=== PATIENT | female | born 1945 | race African-American/Black ===

== ENCOUNTER 2019-12-02 14:09 | Inpatient (IN) | payer MEDICARE, MEDICAID ==
[~2019-12-02] VITALS: Ht 162.6 cm; Wt 68.9 kg
[2019-12-02] MEDS ORDERED: SODIUM CHLORIDE 0.9% 500 ML IV ONE (14:45)
[2019-12-02 15:27] LABS: HEMATOCRIT. 24.1 % (36.0-48.0); HEMOGLOBIN. 7.8 g/dL (12.0-16.0); MEAN CORPUSCULAR HEMOGLOBIN 23.6 pg (28.0-32.0); MEAN CORPUSCULAR VOLUME 72.8 fL (81.0-99.0); MEAN PLATELET VOLUME 7.5 fl (7.4-10.4); PLATELET 469 x1000/uL (130-400); RED BLOOD CELL COUNT 3.31 mill/uL (4.2-5.4); RED CELL DISTRIBUTION WIDTH 17.4 % (11.6-14.6)
[2019-12-02 15:34] LABS: CHLORIDE 95 mEq/L (98-107)
[2019-12-02 15:36] LABS: INR 1.1; PROTHROMBIN TIME 11.4 sec (9.6-11.0)
[2019-12-02 15:38] LABS: ETHANOL BLOOD < 10 mg/dL
[2019-12-02 15:48] LABS: PLATELET ESTIMATE INCREASED
[2019-12-02] MEDS ORDERED: SODIUM CHLORIDE 0.9% 1000ML BAG (SEPSIS BOLUS) IV NR (16:00)
[2019-12-02 16:33] LABS: CLARITY URINE TURBID (CLEAR); COLOR URINE DARK YELLOW (YELLOW); KETONES URINE TRACE (NEGATIVE); LEUKOCYTE ESTERASE URINE 3+ (NEGATIVE); NITRITE URINE POSITIVE (NEGATIVE); OCCULT BLOOD URINE 3+ (NEGATIVE); PROTEIN URINE 1+ (NEGATIVE); SPECIFIC GRAVITY URINE 1.018 (1.005-1.030)
[2019-12-02 16:45] LABS: METHADONE URINE SCREEN NEGATIVE (NEGATIVE); OPIATES URINE SCREEN NEGATIVE (NEGATIVE)
[2019-12-02 16:46] LABS: *AMPHETAMINES SCREEN URINE NEGATIVE (NEGATIVE); *BARBITURATES SCREEN URINE NEGATIVE (NEGATIVE); *BENZODIAZEPINES SCREEN URINE NEGATIVE (NEGATIVE); *COCAINE SCREEN URINE NEGATIVE (NEGATIVE); CANNABINOID URINE SCREEN NEGATIVE (NEGATIVE); PHENCYCLIDINE URINE SCREEN NEGATIVE (NEGATIVE)
[2019-12-02] MEDS ORDERED: NA PHOS,M-B/NA PHOS,DI-BA ENEMA 118ML PR NR (17:30)
[2019-12-02] MEDS ORDERED: MAGNESIUM/ALUMINUM HYDROXIDE/SIMETHICONE 30ML UDC PO PRN (17:45)
[2019-12-02] MEDS ORDERED: TRAMADOL 50MG TABLET PO PRN (17:45)
[2019-12-02] MEDS ORDERED: IPRATROPIUM/ALBUTEROL 0.5-3(2.5)MG/3ML NEB NEB PRN (17:45)
[2019-12-02] MEDS ORDERED: DOCUSATE SODIUM 100MG CAPSULE PO PRN (17:45)
[2019-12-02] MEDS ORDERED: ACETAMINOPHEN 325MG TABLET PO PRN ×2 (17:45)
[2019-12-02] MEDS ORDERED: NA PHOS,M-B/NA PHOS,DI-BA ENEMA 118ML PR PRN (17:45)
[2019-12-02] MEDS ORDERED: NITROGLYCERIN 0.4MG TABLET SL SL PRN (17:45)
[2019-12-02] MEDS ORDERED: ZOLPIDEM TARTRATE 5MG TABLET PO PRN (17:45)
[2019-12-02] MEDS ORDERED: CLONIDINE 0.1MG TABLET PO PRN (17:45)
[2019-12-02] MEDS ORDERED: ONDANSETRON HCL 4MG/2ML INJ IV PRN (17:45)
[2019-12-02] MEDS: SODIUM CHLORIDE 0.9% 1,000 ML IV SCH (18:27)
[2019-12-02 18:41] LABS: T4 FREE 1.52 ng/dL (0.76-1.46)
[2019-12-02] MEDS ORDERED: LEVOFLOXACIN 750MG PREMIX 150 ML IV SCH (19:00)
[2019-12-02] MEDS ORDERED: PANTOPRAZOLE 80 MG in SODIUM CHLORIDE 0.9% 100 ML IV SCH (19:00)
[2019-12-02] MEDS ORDERED: PANTOPRAZOLE SODIUM 40 MG/VIAL IV ONE (19:05)
[2019-12-02 19:13] LABS: VITAMIN B12 SERUM > 2000.0 pg/mL (211-911)
[2019-12-02] MEDS ORDERED: CEFTRIAXONE 1 G PREMIX 50 ML IV SCH (20:00)
[2019-12-02] MEDS: PANTOPRAZOLE 80 MG in SODIUM CHLORIDE 0.9% 100 ML IV SCH (22:27)
[2019-12-02] MEDS: ASCORBIC ACID 500 MG TABLET PO SCH (22:27)
[2019-12-02 23:05] VITALS: BP 113/53
[2019-12-02] MEDS ORDERED: BENZ1LOZ60 MT (23:37)
[2019-12-02] MEDS ORDERED: LACT10SO70 PO (23:37)
[2019-12-02] MEDS ORDERED: MEGE40TA5 MT (23:37)
[2019-12-02] MEDS ORDERED: NYSTATIN PO (23:37)
[2019-12-02] MEDS: CEFTRIAXONE 1,000 MG in DEXTROSE 5% WATER 50 ML IV SCH (23:43)
[2019-12-03] VITALS (10 sets, daily range): BP systolic 97–124; BP diastolic 45–66
[2019-12-03 01:00] LABS: CREATINE KINASE 28 IU/L (26-192)
[2019-12-03 07:38] LABS: HEMOGLOBIN. 7.2 g/dL (12.0-16.0); MEAN CORPUSCULAR HEMOGLOBIN 23.1 pg (28.0-32.0); MEAN CORPUSCULAR VOLUME 74.4 fL (81.0-99.0); MEAN PLATELET VOLUME 7.1 fl (7.4-10.4); PLATELET 385 x1000/uL (130-400); RED CELL DISTRIBUTION WIDTH 17.1 % (11.6-14.6)
[2019-12-03 07:51] LABS: CHLORIDE 103 mEq/L (98-107)
[2019-12-03 08:02] LABS: CREATINE KINASE 26 IU/L (26-192)
[2019-12-03 08:03] LABS: PHOSPHORUS 3.8 mg/dL (2.5-4.9)
[2019-12-03 08:06] LABS: CREATINE KINASE MB FRACTION 1.2 ng/mL (0.5-3.6)
[2019-12-03] MEDS ORDERED: ACETAMINOPHEN 325MG TABLET PO SCH (08:45)
[2019-12-03] MEDS ORDERED: DIPHENHYDRAMINE 25MG CAPSULE PO SCH (08:45)
[2019-12-03] MEDS ORDERED: MINERAL OIL ENEMA 133ML PR SCH (09:00)
[2019-12-03] MEDS: ASCORBIC ACID 500 MG TABLET PO SCH ×2 (09:11→21:36)
[2019-12-03 10:20] LABS: BASOPHILS % 0.1 % (0.0-2.0); EOSINOPHILS % 0.3 % (0.0-5.0); HEMATOCRIT. 24.4 % (36.0-48.0); HEMOGLOBIN. 7.6 g/dL (12.0-16.0); LYMPHOCYTES % 8.2 % (20.0-50.0); MEAN CORPUSCULAR HEMOGLOBIN 23.3 pg (28.0-32.0); MEAN CORPUSCULAR VOLUME 75.1 fL (81.0-99.0); MONOCYTES % 4.6 % (2.0-8.0); NEUTROPHILS % 86.8 % (40.0-76.0); PLATELET 390 x1000/uL (130-400); RED BLOOD CELL COUNT 3.25 mill/uL (4.2-5.4); RED CELL DISTRIBUTION WIDTH 17.6 % (11.6-14.6)
[2019-12-03 10:31] LABS: INR 1.1; PROTHROMBIN TIME 11.9 sec (9.6-11.0)
[2019-12-03] MEDS: SODIUM CHLORIDE 0.9% 1,000 ML IV SCH ×4 (13:35→22:36)
[2019-12-03 15:28] LABS: HEMATOCRIT 27.2 % (36.0-48.0); HEMOGLOBIN 8.6 g/dL (12.0-16.0)
[2019-12-03] MEDS: PANTOPRAZOLE 80 MG in SODIUM CHLORIDE 0.9% 100 ML IV SCH (17:14)
[2019-12-03 19:55] LABS: HEMATOCRIT 26.8 % (36.0-48.0); HEMOGLOBIN 8.5 g/dL (12.0-16.0)
[2019-12-03] MEDS: CEFTRIAXONE 1,000 MG in DEXTROSE 5% WATER 50 ML IV SCH (22:36)
[2019-12-04] VITALS: BP 101/77
[2019-12-04] MEDS: PANTOPRAZOLE 80 MG in SODIUM CHLORIDE 0.9% 100 ML IV SCH ×2 (02:06→13:11)
[2019-12-04 03:40] LABS: HEMATOCRIT 25.9 % (36.0-48.0); HEMOGLOBIN 8.4 g/dL (12.0-16.0)
[2019-12-04 04:00] VITALS: BP 103/61
[2019-12-04 08:00] VITALS: BP 117/67
[2019-12-04] MEDS: ZINC SULFATE 220 MG ( 50 ) CAPSULE PO SCH (08:23)
[2019-12-04] MEDS: ASCORBIC ACID 500 MG TABLET PO SCH ×2 (08:23→22:08)
[2019-12-04] MEDS: SODIUM CHLORIDE 0.9% 1,000 ML IV SCH ×2 (08:36→19:55)
[2019-12-04] MEDS ORDERED: MINERAL OIL ENEMA 133ML PR SCH (10:00)
[2019-12-04 12:00] VITALS: BP 99/51
[2019-12-04 12:38] LABS: PLATELET ESTIMATE NORMAL
[2019-12-04] MEDS: LACTULOSE 20G/30ML UDC PO SCH ×2 (13:08→22:08)
[2019-12-04 16:00] VITALS: BP 92/52
[2019-12-04] MEDS: LEVOFLOXACIN 750MG PREMIX 150 ML IV SCH (18:23)
[2019-12-04 20:00] VITALS: BP 102/48
[2019-12-04] MEDS ORDERED: SORBITOL 70% SOLN 30ML PO NR (20:00)
[2019-12-04] MEDS: CEFTRIAXONE 1,000 MG in DEXTROSE 5% WATER 50 ML IV SCH (22:26)
[2019-12-05] VITALS: BP 96/51
[2019-12-05] MEDS: PANTOPRAZOLE 80 MG in SODIUM CHLORIDE 0.9% 100 ML IV SCH ×3 (00:25→17:02)
[2019-12-05 04:00] VITALS: BP 100/50
[2019-12-05] MEDS: SODIUM CHLORIDE 0.9% 1,000 ML IV SCH ×2 (05:44→17:02)
[2019-12-05] MEDS: LACTULOSE 20G/30ML UDC PO SCH ×3 (05:44→21:47)
[2019-12-05] MEDS ORDERED: SORBITOL 70% SOLN 30ML PO NR (06:00)
[2019-12-05 08:00] VITALS: BP_SYST 82; BP_SYST 89; BP_DIAS 34; BP_DIAS 44
[2019-12-05] MEDS: ZINC SULFATE 220 MG ( 50 ) CAPSULE PO SCH (09:50)
[2019-12-05] MEDS: ASCORBIC ACID 500 MG TABLET PO SCH ×2 (09:50→21:44)
[2019-12-05] MEDS ORDERED: NA PHOS,M-B/NA PHOS,DI-BA ENEMA 118ML PR NR (10:00)
[2019-12-05] MEDS: NA PHOS,M-B/NA PHOS,DI-BA ENEMA 118ML PR NR ×2 (11:14→14:27)
[2019-12-05 12:00] VITALS: BP 80/52
[2019-12-05 14:31] LABS: BG BASE EXCESS -9.3 mmol/L (-2.0-2.0); BG DEOXYHEMOGLOBIN 1.9 % (0.0-5.0); BG FRACTION INSPIRED OXYGEN 24; BG HCO3 ACT 14.2 mmol/L (22.0-26.0); BG METHEMOGLOBIN 0.2 % (0.0-1.5); BG OXYGEN SATURATION 98.1 % (92.0-98.5); BG OXYHEMOGLOBIN 97.9 % (94.0-97.0); BG PCO2 23.9 mmHg (35.0-45.0); BG PH 7.392 (7.350-7.450); BG PO2 108.4 mmHg (75.0-100.0); BG SAMPLE SITE LEFT RADIAL; BG TOTAL HEMOGLOBIN 9.6 g/dL (12.0-18.0); BG VENT MODE NASAL CANNULA
[2019-12-05 16:00] VITALS: BP 88/44
[2019-12-05 16:49] LABS: HEMATOCRIT. 29.9 % (36.0-48.0); HEMOGLOBIN. 9.2 g/dL (12.0-16.0); MEAN CORPUSCULAR HEMOGLOBIN 24.8 pg (28.0-32.0); MEAN CORPUSCULAR VOLUME 80.7 fL (81.0-99.0); MEAN PLATELET VOLUME 7.9 fl (7.4-10.4); PLATELET 168 x1000/uL (130-400); RED CELL DISTRIBUTION WIDTH 19.7 % (11.6-14.6)
[2019-12-05 16:55] LABS: CHLORIDE 117 mEq/L (98-107)
[2019-12-05] MEDS: POTASSIUM CHLORIDE 20MEQ/PACKET PO NR ×2 (18:22→21:44)
[2019-12-05 20:00] VITALS: BP 90/65
[2019-12-05] MEDS ORDERED: POTASSIUM CHLORIDE INJ 40 MEQ in DEXT 5% WATER 250 ML IV NR (20:00)
[2019-12-05 20:16] LABS: NUCLEATED RED BLOOD CELLS 1 /100 WBC
[2019-12-05 20:17] LABS: PLATELET ESTIMATE NORMAL
[2019-12-06] VITALS: BP 90/76
[2019-12-06] MEDS: CEFTRIAXONE 1,000 MG in DEXTROSE 5% WATER 50 ML IV SCH ×2 (00:32→21:23)
[2019-12-06] MEDS: POTASSIUM CHLORIDE 20MEQ/PACKET PO NR (01:41)
[2019-12-06] MEDS: SODIUM CHLORIDE 0.9% 1,000 ML IV SCH ×2 (01:41→11:34)
[2019-12-06 04:00] VITALS: BP 122/80
[2019-12-06] MEDS: PANTOPRAZOLE 80 MG in SODIUM CHLORIDE 0.9% 100 ML IV SCH (04:50)
[2019-12-06] MEDS: LACTULOSE 20G/30ML UDC PO SCH ×3 (05:28→22:05)
[2019-12-06 08:00] VITALS: BP 90/54
[2019-12-06] MEDS: ASCORBIC ACID 500 MG TABLET PO SCH ×2 (08:37→21:22)
[2019-12-06] MEDS: ZINC SULFATE 220 MG ( 50 ) CAPSULE PO SCH (08:37)
[2019-12-06] MEDS ORDERED: PANTOPRAZOLE SODIUM 40 MG/VIAL IV SCH (09:00)
[2019-12-06 10:35] LABS: BASOPHILS % 0.4 % (0.0-2.0); EOSINOPHILS % 0.1 % (0.0-5.0); HEMATOCRIT. 28.4 % (36.0-48.0); HEMOGLOBIN. 8.6 g/dL (12.0-16.0); LYMPHOCYTES % 10.1 % (20.0-50.0); MEAN CORPUSCULAR HEMOGLOBIN 24.5 pg (28.0-32.0); MEAN PLATELET VOLUME 8.1 fl (7.4-10.4); MONOCYTES % 4.1 % (2.0-8.0); NEUTROPHILS % 85.3 % (40.0-76.0); PLATELET 168 x1000/uL (130-400); RED BLOOD CELL COUNT 3.51 mill/uL (4.2-5.4); RED CELL DISTRIBUTION WIDTH 19.5 % (11.6-14.6)
[2019-12-06 10:45] LABS: CHLORIDE 123 mEq/L (98-107)
[2019-12-06 10:53] LABS: PHOSPHORUS 4.4 mg/dL (2.5-4.9)
[2019-12-06 14:52] VITALS: BP 170/127
[2019-12-06 15:40] VITALS: BP 143/101
[2019-12-06 15:59] LABS: PHOSPHORUS 5.9 mg/dL (2.5-4.9)
[2019-12-06] MEDS: SODIUM CHLORIDE 0.45% 1,000 ML IV SCH ×2 (16:30→21:23)
[2019-12-06] MEDS ORDERED: SODIUM CHLORIDE 0.45% 1,000 ML IV SCH (16:30)
[2019-12-06] MEDS ORDERED: SODIUM BICARBONATE 8.4% 1 MEQ/ML 50ML SYR IV NR (17:30)
[2019-12-06] MEDS ORDERED: FUROSEMIDE 40MG/4ML VIAL IVP NR (17:30)
[2019-12-06] MEDS: LEVOFLOXACIN 750MG PREMIX 150 ML IV SCH (18:08)
[2019-12-06] MEDS ORDERED: SODIUM POLYSTYRENE SULFONATE 15 G/60 ML BOT PO NR (18:30)
[2019-12-06 20:00] VITALS: BP 158/132
== END 2019-12-06 23:55 | disposition expired | DRG 720 ==
LOC: ER 14:09 → 8WST 16:59 → EDBEDREQ 17:04 → EDBEDREQTM 17:04 → ENRESERV 19:36 → 8WST 22:20
PROVIDERS: ADMIT Internal Medicine; ATTEND Internal Medicine
PROC: 30233N1 Transfusion of Nonautologous Red Blood Cells into Peripheral Vein, Percutaneous Approach (ICD-10-PCS; principal; 2019-12-03)
DX: A41.9 Sepsis, unspecified organism (principal); R65.20 Severe sepsis without septic shock; G92 Toxic encephalopathy; N39.0 Urinary tract infection, site not specified; I10 Essential (primary) hypertension; E43 Unspecified severe protein-calorie malnutrition; E87.1 Hypo-osmolality and hyponatremia; E87.5 Hyperkalemia; Z66 Do not resuscitate; F02.80 Dementia in other diseases classified elsewhere, unspecified severity, without behavioral disturbance, psychotic disturbance, mood disturbance, and anxiety; E87.2 Acidosis; G30.9 Alzheimer's disease, unspecified; D50.9 Iron deficiency anemia, unspecified; L89.154 Pressure ulcer of sacral region, stage 4; K56.609 Unspecified intestinal obstruction, unspecified as to partial versus complete obstruction; E86.0 Dehydration; G40.89 Other seizures; Z51.5 Encounter for palliative care; I82.413 Acute embolism and thrombosis of femoral vein, bilateral; I82.431 Acute embolism and thrombosis of right popliteal vein; N17.9 Acute kidney failure, unspecified; Z68.26 Body mass index [BMI] 26.0-26.9, adult; K56.41 Fecal impaction
CPT/HCPCS: 36415; 36600; 71045; 74018; 74021; 74176; 80048; 80053; 80305; 80320; 81003; 82040; 82140; 82270; 82375; 82550; 82553; 82607; 82746; 82805; 83036; 83540; 83550; 83605; 83735; 83880; 84100; 84134; 84439; 84443; 84484; 85014; 85018; 85025; 86850; 86870; 86900; 86920; 87186; 93005; 93970; 97162; 97166; 97530; 99291; C9113; J0696; J1940; J1956; J3480; J3490; J7040; J7050; J7060; P9016; Q0163; G0480